=== PATIENT | male | born 1955 | race Caucasian/White ===

== ENCOUNTER 2017-09-06 08:36 | Inpatient (IN) | payer OTHER ==
[~2017-09-06] VITALS: Ht 177.8 cm; Wt 130.1 kg
[2017-09-06] MEDS ORDERED: ipratropium/albuterol 3ml nebule NEB ONE (09:15)
[2017-09-06] MEDS ORDERED: methylPREDNISolone sod succ 125mg/2ml vial IV ONE (09:15)
[2017-09-06 09:40] LABS: BASOPHILS % (AUTO) 0.5 % (0-1); EOSINOPHILS # (AUTO) 0.2 X10'3 (0-0.9); EOSINOPHILS % (AUTO) 2.5 % (0-6); HEMATOCRIT 45.4 % (42.0-52.0); HEMOGLOBIN 15.4 g/dl (14.0-17.9); LYMPHOCYTES # (AUTO) 1.9 X10'3 (1.1-4.8); MEAN CORPUSCULAR HEMOGLOBIN 28.5 PG (27.0-31.0); MEAN CORPUSCULAR HGB CONC 33.9 % (33.0-36.5); MEAN CORPUSCULAR VOLUME 84.2 FL (78-98); MEAN PLATELET VOLUME 8.3 FL (7.4-10.4); MONOCYTES # (AUTO) 0.6 X10'3 (0-0.9); MONOCYTES % (AUTO) 6.9 % (2-12); NEUTROPHILS # (AUTO) 6.3 X10'3 (1.8-7.7); NEUTROPHILS % (AUTO) 69.1 % (42-75); PLATELET COUNT 234 X10'3 (140-440); RED CELL DISTRIBUTION WIDTH 14.8 % (11.5-14.5); WHITE BLOOD COUNT 9.1 X10'3 (4.5-11.0)
[2017-09-06] MEDS ORDERED: iohexol 350MG/ML 100ml bottle IV ONE (09:58)
[2017-09-06 10:02] LABS: ALANINE AMINOTRANSFERASE 63 U/L (12-78); ALBUMIN 3.4 G/DL (3.4-5.0); ALBUMIN/GLOBULIN RATIO 0.9 (1.1-1.5); ALKALINE PHOSPHATASE 50 IU/L (46-116); ANION GAP 8 (8-16); ASPARTATE AMINO TRANSFERASE 30 U/L (10-37); BILIRUBIN,TOTAL 0.8 MG/DL (0.1-1.0); BLOOD UREA NITROGEN 19 MG/DL (7-18); BUN/CREATININE RATIO 18.6 (5.4-32.0); CHLORIDE 102 MMOL/L (99-107); CREATININE 1.02 MG/DL (0.60-1.10); GLUCOSE 166 MG/DL (70-104); POTASSIUM 4.3 MMOL/L (3.5-5.1); SODIUM 137 MMOL/L (135-145); TOTAL CARBON DIOXIDE 26.6 MMOL/L (24-32); TOTAL PROTEIN 7.4 G/DL (6.4-8.2); eGFR 74 ML/MIN
[2017-09-06] MEDS ORDERED: HYDROcodone/acetaminophen 5mg/325mg tablet PO ONE (10:45)
[2017-09-06] MEDS ORDERED: furosemide 10 MG/1 ML 10ml inj IV ONE (12:25)
[2017-09-06] MEDS ORDERED: albuterol 2.5 MG/3 ML nebule NEB PRN (13:00)
[2017-09-06] MEDS ORDERED: magnesium hydroxide 30ml (MOM) UD suspension PO PRN (13:00)
[2017-09-06] MEDS ORDERED: mag hydrox/Alum hydrox/simeth 30ml oral suspension PO PRN (13:00)
[2017-09-06] MEDS ORDERED: ondansetron/PF 4mg/2ml inj IV PRN (13:00)
[2017-09-06] MEDS ORDERED: acetaminophen 325mg tablet PO PRN ×2 (13:00)
[2017-09-06] MEDS ORDERED: nicotine 21mg patch - 24 hr TD ONE (14:50)
[2017-09-06] MEDS: methylPREDNISolone sod succ 125mg/2ml vial IV SCH ×2 (16:00→23:45)
[2017-09-06] MEDS: doxycycline hyclate 100mg tablet.DR PO SCH (17:30)
[2017-09-06] MEDS ORDERED: metoprolol tartrate 50mg tablet PO ONE (19:40)
[2017-09-06 20:20] VITALS: BP 146/68
[2017-09-07] VITALS (10 sets, daily range): BP systolic 121–145; BP diastolic 69–77
[2017-09-07] MEDS: HYDROcodone/acetaminophen 5mg/325mg tablet PO PRN ×2 (05:22→14:45)
[2017-09-07 06:01] LABS: BASOPHILS % (AUTO) 0.1 % (0-1); EOSINOPHILS % (AUTO) 0 % (0-6); HEMATOCRIT 44.6 % (42.0-52.0); HEMOGLOBIN 15.4 g/dl (14.0-17.9); LYMPHOCYTES % (AUTO) 6.9 % (21-51); MEAN CORPUSCULAR HEMOGLOBIN 28.8 PG (27.0-31.0); MEAN CORPUSCULAR HGB CONC 34.5 % (33.0-36.5); MEAN CORPUSCULAR VOLUME 83.5 FL (78-98); MEAN PLATELET VOLUME 8.6 FL (7.4-10.4); MONOCYTES # (AUTO) 0.2 X10'3 (0-0.9); MONOCYTES % (AUTO) 1.7 % (2-12); NEUTROPHILS # (AUTO) 13.3 X10'3 (1.8-7.7); NEUTROPHILS % (AUTO) 91.3 % (42-75); PLATELET COUNT 242 X10'3 (140-440); RED BLOOD COUNT 5.34 X10'6 (4.70-6.10); RED CELL DISTRIBUTION WIDTH 14.9 % (11.5-14.5); WHITE BLOOD COUNT 14.6 X10'3 (4.5-11.0)
[2017-09-07 06:22] LABS: ALANINE AMINOTRANSFERASE 63 U/L (12-78); ALBUMIN 3.2 G/DL (3.4-5.0); ALBUMIN/GLOBULIN RATIO 0.8 (1.1-1.5); ALKALINE PHOSPHATASE 49 IU/L (46-116); ANION GAP 9 (8-16); ASPARTATE AMINO TRANSFERASE 23 U/L (10-37); BILIRUBIN,TOTAL 0.5 MG/DL (0.1-1.0); BLOOD UREA NITROGEN 26 MG/DL (7-18); CALCIUM 8.9 MG/DL (8.5-10.1); CHLORIDE 100 MMOL/L (99-107); CHOL/HDL RATIO 5.5 (0.00-4.99); CHOLESTEROL 187 MG/DL (0-200); CREATININE 1.24 MG/DL (0.60-1.10); GLUCOSE 249 MG/DL (70-104); HDL CHOLESTEROL 34 MG/DL (35-60); LDL CHOLESTEROL 132 MG/DL (50-100); POTASSIUM 4.4 MMOL/L (3.5-5.1); SODIUM 135 MMOL/L (135-145); TOTAL CARBON DIOXIDE 25.6 MMOL/L (24-32); TOTAL PROTEIN 7.3 G/DL (6.4-8.2); TRIGLYCERIDES 72 MG/DL (20-135); eGFR 59 ML/MIN
[2017-09-07] MEDS: doxycycline hyclate 100mg tablet.DR PO SCH ×2 (08:07→17:37)
[2017-09-07] MEDS: enoxaparin 40mg/0.4ml syringe SQ SCH (08:09)
[2017-09-07] MEDS: methylPREDNISolone sod succ 125mg/2ml vial IV SCH ×3 (08:09→23:04)
[2017-09-07 10:28] LABS: BFSOURCE LEFT PLEURAL FLD; PLEURAL FLUID PH 7.458 (7.63-7.65)
[2017-09-07 11:26] LABS: GLUCOSE,BODY FLUID 287 MG/DL; LDH,BODY FLUID 206 U/L; TOTAL PROTEIN,BODY FLUID 5.3 G/DL
[2017-09-07 12:13] LABS: LYMPHOCYTES,BODY FLUID 70 %; MONOCYTES,BODY FLUID 13 %; NEUTROPHILS,BODY FLUID 17 %
[2017-09-07 12:14] LABS: BF MESOTHELIAL CELLS FEW; BF RBC COUNT 4425 /CU MM; BF WBC COUNT 2025 /CU MM (0-1000); BFAPPEAR CLOUDY; BFCOLOR YELLOW; BFVOLUME 56 ML
[2017-09-07] MEDS ORDERED: ASPI-1264 PO (15:17)
[2017-09-07] MEDS: nicotine 21mg patch - 24 hr TD SCH ×2 (23:00→23:04)
[2017-09-08] VITALS: BP 137/68
[2017-09-08 05:06] LABS: BASOPHILS % (AUTO) 0 % (0-1); EOSINOPHILS # (AUTO) 0.1 X10'3 (0-0.9); EOSINOPHILS % (AUTO) 0.8 % (0-6); HEMATOCRIT 45.9 % (42.0-52.0); HEMOGLOBIN 15.5 g/dl (14.0-17.9); LYMPHOCYTES # (AUTO) 0.9 X10'3 (1.1-4.8); LYMPHOCYTES % (AUTO) 5.2 % (21-51); MEAN CORPUSCULAR HEMOGLOBIN 28.5 PG (27.0-31.0); MEAN CORPUSCULAR HGB CONC 33.8 % (33.0-36.5); MEAN CORPUSCULAR VOLUME 84.3 FL (78-98); MEAN PLATELET VOLUME 8.6 FL (7.4-10.4); MONOCYTES # (AUTO) 0.3 X10'3 (0-0.9); MONOCYTES % (AUTO) 1.7 % (2-12); NEUTROPHILS # (AUTO) 15.7 X10'3 (1.8-7.7); NEUTROPHILS % (AUTO) 92.3 % (42-75); PLATELET COUNT 244 X10'3 (140-440); RED BLOOD COUNT 5.45 X10'6 (4.70-6.10); RED CELL DISTRIBUTION WIDTH 14.9 % (11.5-14.5)
[2017-09-08 05:20] LABS: ALANINE AMINOTRANSFERASE 56 U/L (12-78); ALBUMIN 3.2 G/DL (3.4-5.0); ALBUMIN/GLOBULIN RATIO 0.8 (1.1-1.5); ALKALINE PHOSPHATASE 51 IU/L (46-116); ANION GAP 5 (8-16); ASPARTATE AMINO TRANSFERASE 22 U/L (10-37); BILIRUBIN,TOTAL 0.5 MG/DL (0.1-1.0); BLOOD UREA NITROGEN 27 MG/DL (7-18); BUN/CREATININE RATIO 23.3 (5.4-32.0); CALCIUM 9.2 MG/DL (8.5-10.1); CHLORIDE 102 MMOL/L (99-107); CREATININE 1.16 MG/DL (0.60-1.10); GLUCOSE 269 MG/DL (70-104); POTASSIUM 4.9 MMOL/L (3.5-5.1); SODIUM 137 MMOL/L (135-145); TOTAL CARBON DIOXIDE 29.7 MMOL/L (24-32); TOTAL PROTEIN 7.4 G/DL (6.4-8.2); eGFR 64 ML/MIN
[2017-09-08 07:09] VITALS: BP 135/76
[2017-09-08] MEDS: doxycycline hyclate 100mg tablet.DR PO SCH ×2 (07:48→16:33)
[2017-09-08] MEDS: enoxaparin 40mg/0.4ml syringe SQ SCH (07:49)
[2017-09-08] MEDS: methylPREDNISolone sod succ 125mg/2ml vial IV SCH ×2 (07:49→16:33)
[2017-09-08 11:09] VITALS: BP 156/76
[2017-09-08] MEDS: HYDROcodone/acetaminophen 5mg/325mg tablet PO PRN (16:41)
[2017-09-08 19:00] VITALS: BP 158/81
[2017-09-08 23:30] VITALS: BP 147/68
[2017-09-09] MEDS: methylPREDNISolone sod succ 125mg/2ml vial IV SCH ×4 (00:01→23:25)
[2017-09-09] MEDS: nicotine 21mg patch - 24 hr TD SCH (00:03)
[2017-09-09 06:27] LABS: BASOPHILS % (AUTO) 0 % (0-1); EOSINOPHILS % (AUTO) 0 % (0-6); HEMATOCRIT 44.1 % (42.0-52.0); LYMPHOCYTES # (AUTO) 0.9 X10'3 (1.1-4.8); LYMPHOCYTES % (AUTO) 6.3 % (21-51); MEAN CORPUSCULAR HEMOGLOBIN 28.6 PG (27.0-31.0); MEAN CORPUSCULAR HGB CONC 33.9 % (33.0-36.5); MEAN CORPUSCULAR VOLUME 84.3 FL (78-98); MEAN PLATELET VOLUME 8.9 FL (7.4-10.4); MONOCYTES # (AUTO) 0.3 X10'3 (0-0.9); MONOCYTES % (AUTO) 2.4 % (2-12); NEUTROPHILS # (AUTO) 12.4 X10'3 (1.8-7.7); NEUTROPHILS % (AUTO) 91.3 % (42-75); PLATELET COUNT 218 X10'3 (140-440); RED BLOOD COUNT 5.23 X10'6 (4.70-6.10); RED CELL DISTRIBUTION WIDTH 14.8 % (11.5-14.5); WHITE BLOOD COUNT 13.6 X10'3 (4.5-11.0)
[2017-09-09 06:42] LABS: ALANINE AMINOTRANSFERASE 52 U/L (12-78); ALBUMIN/GLOBULIN RATIO 0.8 (1.1-1.5); ALKALINE PHOSPHATASE 53 IU/L (46-116); ANION GAP 7 (8-16); ASPARTATE AMINO TRANSFERASE 19 U/L (10-37); BILIRUBIN,TOTAL 0.4 MG/DL (0.1-1.0); BLOOD UREA NITROGEN 27 MG/DL (7-18); BUN/CREATININE RATIO 22.7 (5.4-32.0); CALCIUM 8.9 MG/DL (8.5-10.1); CHLORIDE 104 MMOL/L (99-107); CREATININE 1.19 MG/DL (0.60-1.10); GLUCOSE 348 MG/DL (70-104); SODIUM 138 MMOL/L (135-145); TOTAL CARBON DIOXIDE 27.1 MMOL/L (24-32); TOTAL PROTEIN 6.9 G/DL (6.4-8.2); eGFR 62 ML/MIN
[2017-09-09 07:00] VITALS: BP 134/86
[2017-09-09] MEDS: doxycycline hyclate 100mg tablet.DR PO SCH ×2 (07:14→17:27)
[2017-09-09] MEDS: enoxaparin 40mg/0.4ml syringe SQ SCH (07:15)
[2017-09-09] MEDS: HYDROcodone/acetaminophen 5mg/325mg tablet PO PRN ×2 (07:16→14:43)
[2017-09-09 12:07] VITALS: BP 136/65
[2017-09-09 19:00] VITALS: BP 154/81
[2017-09-09] MEDS: zolpidem 5mg tablet PO PRN (21:39)
[2017-09-09 23:00] VITALS: BP 134/68
[2017-09-10] MEDS: nicotine 21mg patch - 24 hr TD SCH (01:18)
[2017-09-10] MEDS: HYDROcodone/acetaminophen 5mg/325mg tablet PO PRN ×4 (02:51→19:34)
[2017-09-10 05:22] LABS: BASOPHILS % (AUTO) 0 % (0-1); EOSINOPHILS % (AUTO) 0 % (0-6); HEMATOCRIT 47.2 % (42.0-52.0); HEMOGLOBIN 15.8 g/dl (14.0-17.9); LYMPHOCYTES % (AUTO) 7.2 % (21-51); MEAN CORPUSCULAR HEMOGLOBIN 28.2 PG (27.0-31.0); MEAN CORPUSCULAR HGB CONC 33.5 % (33.0-36.5); MEAN CORPUSCULAR VOLUME 84.2 FL (78-98); MEAN PLATELET VOLUME 8.8 FL (7.4-10.4); MONOCYTES # (AUTO) 0.4 X10'3 (0-0.9); MONOCYTES % (AUTO) 3.1 % (2-12); NEUTROPHILS # (AUTO) 12.7 X10'3 (1.8-7.7); NEUTROPHILS % (AUTO) 89.7 % (42-75); PLATELET COUNT 244 X10'3 (140-440); WHITE BLOOD COUNT 14.2 X10'3 (4.5-11.0)
[2017-09-10 05:50] LABS: ALANINE AMINOTRANSFERASE 63 U/L (12-78); ALBUMIN 3.3 G/DL (3.4-5.0); ALBUMIN/GLOBULIN RATIO 0.8 (1.1-1.5); ALKALINE PHOSPHATASE 67 IU/L (46-116); ANION GAP 6 (8-16); ASPARTATE AMINO TRANSFERASE 20 U/L (10-37); BILIRUBIN,TOTAL 0.5 MG/DL (0.1-1.0); BLOOD UREA NITROGEN 27 MG/DL (7-18); BUN/CREATININE RATIO 20.3 (5.4-32.0); CALCIUM 9.4 MG/DL (8.5-10.1); CHLORIDE 98 MMOL/L (99-107); CREATININE 1.33 MG/DL (0.60-1.10); SODIUM 134 MMOL/L (135-145); TOTAL CARBON DIOXIDE 30.4 MMOL/L (24-32); TOTAL PROTEIN 7.7 G/DL (6.4-8.2); eGFR 55 ML/MIN
[2017-09-10 05:57] LABS: GLUCOSE 481 MG/DL (70-104)
[2017-09-10 05:58] LABS: POTASSIUM 6.1 MMOL/L (3.5-5.1)
[2017-09-10 07:03] LABS: HEMOGLOBIN A1C 8.3 % (4.5-6.2)
[2017-09-10 07:54] VITALS: BP 154/80
[2017-09-10 07:54] LABS: ALANINE AMINOTRANSFERASE 62 U/L (12-78); ALBUMIN 3.3 G/DL (3.4-5.0); ALBUMIN/GLOBULIN RATIO 0.8 (1.1-1.5); ALKALINE PHOSPHATASE 62 IU/L (46-116); ANION GAP 6 (8-16); ASPARTATE AMINO TRANSFERASE 19 U/L (10-37); BILIRUBIN,TOTAL 0.5 MG/DL (0.1-1.0); BLOOD UREA NITROGEN 28 MG/DL (7-18); BUN/CREATININE RATIO 22.8 (5.4-32.0); CALCIUM 9.2 MG/DL (8.5-10.1); CHLORIDE 100 MMOL/L (99-107); CREATININE 1.23 MG/DL (0.60-1.10); GLUCOSE 391 MG/DL (70-104); POTASSIUM 5.3 MMOL/L (3.5-5.1); SODIUM 136 MMOL/L (135-145); TOTAL CARBON DIOXIDE 30.4 MMOL/L (24-32); TOTAL PROTEIN 7.5 G/DL (6.4-8.2); eGFR 60 ML/MIN
[2017-09-10] MEDS: doxycycline hyclate 100mg tablet.DR PO SCH ×2 (08:14→16:29)
[2017-09-10] MEDS: methylPREDNISolone sod succ 125mg/2ml vial IV SCH ×2 (08:15→16:30)
[2017-09-10] MEDS: enoxaparin 40mg/0.4ml syringe SQ SCH (08:16)
[2017-09-10] MEDS ORDERED: glucagon, human recombinant 1mg kit SUBCUT PRN (09:00)
[2017-09-10] MEDS ORDERED: dextrose ORAL solution 15 GM/59 ML bottle PO PRN ×2 (09:00)
[2017-09-10] MEDS ORDERED: dextrose 50%-water 50ml dispensing syringe IV PRN ×2 (09:00)
[2017-09-10 11:48] VITALS: BP 159/81
[2017-09-10] MEDS: insulin Lispro (HumaLOG) vial - multi-dose SQ SCH ×3 (13:13→22:29)
[2017-09-10 19:00] VITALS: BP 139/78
[2017-09-10] MEDS: insulin glargine (Lantus) pen - multi-dose SQ SCH (22:28)
[2017-09-10] MEDS: zolpidem 5mg tablet PO PRN (22:29)
[2017-09-10 23:00] VITALS: BP 135/79
[2017-09-11] MEDS: methylPREDNISolone sod succ 125mg/2ml vial IV SCH ×4 (00:11→23:40)
[2017-09-11] MEDS: nicotine 21mg patch - 24 hr TD SCH (00:13)
[2017-09-11 05:31] LABS: BASOPHILS # (AUTO) 0.1 X10'3 (0-0.2); BASOPHILS % (AUTO) 0.4 % (0-1); EOSINOPHILS % (AUTO) 0 % (0-6); HEMATOCRIT 48.8 % (42.0-52.0); HEMOGLOBIN 16.3 g/dl (14.0-17.9); LYMPHOCYTES # (AUTO) 1.3 X10'3 (1.1-4.8); MEAN CORPUSCULAR HEMOGLOBIN 28.4 PG (27.0-31.0); MEAN CORPUSCULAR HGB CONC 33.4 % (33.0-36.5); MEAN PLATELET VOLUME 8.6 FL (7.4-10.4); MONOCYTES # (AUTO) 0.4 X10'3 (0-0.9); MONOCYTES % (AUTO) 3.2 % (2-12); NEUTROPHILS # (AUTO) 12.2 X10'3 (1.8-7.7); NEUTROPHILS % (AUTO) 87.4 % (42-75); PLATELET COUNT 254 X10'3 (140-440); RED BLOOD COUNT 5.73 X10'6 (4.70-6.10); RED CELL DISTRIBUTION WIDTH 14.8 % (11.5-14.5)
[2017-09-11 06:00] LABS: ALANINE AMINOTRANSFERASE 63 U/L (12-78); ALBUMIN 3.1 G/DL (3.4-5.0); ALBUMIN/GLOBULIN RATIO 0.7 (1.1-1.5); ALKALINE PHOSPHATASE 60 IU/L (46-116); ANION GAP 6 (8-16); BILIRUBIN,TOTAL 0.7 MG/DL (0.1-1.0); BLOOD UREA NITROGEN 31 MG/DL (7-18); BUN/CREATININE RATIO 25.6 (5.4-32.0); C-REACTIVE PROTEIN 0.11 MG/DL (0.0-0.5); CALCIUM 9.3 MG/DL (8.5-10.1); CHLORIDE 99 MMOL/L (99-107); CREATININE 1.21 MG/DL (0.60-1.10); GLUCOSE 306 MG/DL (70-104); SODIUM 136 MMOL/L (135-145); TOTAL CARBON DIOXIDE 31.4 MMOL/L (24-32); TOTAL PROTEIN 7.5 G/DL (6.4-8.2); eGFR 61 ML/MIN
[2017-09-11 06:57] VITALS: BP 143/68
[2017-09-11 07:13] LABS: ASPARTATE AMINO TRANSFERASE 32 U/L (10-37); PHOSPHORUS 4.2 MG/DL (2.3-4.5); POTASSIUM 5.8 MMOL/L (3.5-5.1)
[2017-09-11] MEDS: enoxaparin 40mg/0.4ml syringe SQ SCH (07:15)
[2017-09-11] MEDS: HYDROcodone/acetaminophen 5mg/325mg tablet PO PRN ×3 (07:15→20:23)
[2017-09-11] MEDS: doxycycline hyclate 100mg tablet.DR PO SCH ×2 (07:15→16:31)
[2017-09-11 08:08] LABS: HEP B CORE AB, IGM Negative (Negative); HEPATITIS C ANTIBODY 9.3 s/co ratio (0.0-0.9)
[2017-09-11] MEDS: insulin Lispro (HumaLOG) vial - multi-dose SQ SCH ×4 (08:53→20:13)
[2017-09-11 11:41] VITALS: BP 138/62
[2017-09-11 20:00] VITALS: BP 144/78
[2017-09-11] MEDS: insulin glargine (Lantus) pen - multi-dose SQ SCH (20:15)
[2017-09-11] MEDS: zolpidem 5mg tablet PO PRN (21:12)
[2017-09-12 00:48] VITALS: BP 138/83
[2017-09-12 07:10] VITALS: BP 130/86
[2017-09-12] MEDS: doxycycline hyclate 100mg tablet.DR PO SCH ×2 (08:01→17:18)
[2017-09-12] MEDS: HYDROcodone/acetaminophen 5mg/325mg tablet PO PRN ×3 (08:02→21:05)
[2017-09-12] MEDS: methylPREDNISolone sod succ 125mg/2ml vial IV SCH ×2 (08:02→16:00)
[2017-09-12] MEDS: nicotine 21mg patch - 24 hr TD SCH (08:02)
[2017-09-12] MEDS: enoxaparin 40mg/0.4ml syringe SQ SCH (08:24)
[2017-09-12] MEDS: insulin Lispro (HumaLOG) vial - multi-dose SQ SCH ×5 (10:27→21:03)
[2017-09-12 11:00] VITALS: BP 135/81
[2017-09-12] MEDS ORDERED: gadopentetate dimeglumine 7.5 MMOL/15 ML syringe ONE (14:46)
[2017-09-12 20:00] VITALS: BP 133/78
[2017-09-12] MEDS ORDERED: furosemide 20MG tablet PO ONE (21:00)
[2017-09-12] MEDS: insulin glargine (Lantus) pen - multi-dose SQ SCH (21:05)
[2017-09-12 23:30] VITALS: BP 106/76
[2017-09-13] MEDS ORDERED: morphine 4 MG/ML inj SYRINge IV PRN (00:05)
[2017-09-13 05:55] LABS: BASOPHILS % (AUTO) 0.2 % (0-1); EOSINOPHILS # (AUTO) 0.2 X10'3 (0-0.9); EOSINOPHILS % (AUTO) 1.5 % (0-6); HEMATOCRIT 49.2 % (42.0-52.0); HEMOGLOBIN 16.5 g/dl (14.0-17.9); LYMPHOCYTES # (AUTO) 2.5 X10'3 (1.1-4.8); LYMPHOCYTES % (AUTO) 17.7 % (21-51); MEAN CORPUSCULAR HEMOGLOBIN 28.1 PG (27.0-31.0); MEAN CORPUSCULAR HGB CONC 33.6 % (33.0-36.5); MEAN CORPUSCULAR VOLUME 83.8 FL (78-98); MEAN PLATELET VOLUME 8.5 FL (7.4-10.4); MONOCYTES # (AUTO) 1.5 X10'3 (0-0.9); MONOCYTES % (AUTO) 10.7 % (2-12); NEUTROPHILS # (AUTO) 10.1 X10'3 (1.8-7.7); NEUTROPHILS % (AUTO) 69.9 % (42-75); PLATELET COUNT 227 X10'3 (140-440); RED BLOOD COUNT 5.88 X10'6 (4.70-6.10); WHITE BLOOD COUNT 14.4 X10'3 (4.5-11.0)
[2017-09-13 06:06] LABS: PROTHROMBIN TIME 10.7 SECONDS (9.0-12.0)
[2017-09-13 06:10] LABS: ALBUMIN 2.9 G/DL (3.4-5.0); ANION GAP 4 (8-16); BLOOD UREA NITROGEN 39 MG/DL (7-18); BUN/CREATININE RATIO 29.8 (5.4-32.0); CALCIUM 8.7 MG/DL (8.5-10.1); CHLORIDE 100 MMOL/L (99-107); CREATININE 1.31 MG/DL (0.60-1.10); GLUCOSE 140 MG/DL (70-104); POTASSIUM 5.3 MMOL/L (3.5-5.1); SODIUM 139 MMOL/L (135-145); TOTAL CARBON DIOXIDE 34.9 MMOL/L (24-32); eGFR 56 ML/MIN
[2017-09-13] MEDS: nicotine 21mg patch - 24 hr TD SCH (07:50)
[2017-09-13] MEDS: enoxaparin 40mg/0.4ml syringe SQ SCH (07:51)
[2017-09-13 08:00] VITALS: BP 135/84
[2017-09-13] MEDS: insulin Lispro (HumaLOG) vial - multi-dose SQ SCH ×4 (08:32→21:18)
[2017-09-13 11:00] VITALS: BP 136/88
[2017-09-13] MEDS ORDERED: ipratropium/albuterol 3ml nebule NEB PRN (11:40)
[2017-09-13] MEDS ORDERED: sodium polystyrene sulfonate 15gm/60ml oral suspension PO ONE (11:40)
[2017-09-13] MEDS: HYDROcodone/acetaminophen 5mg/325mg tablet PO PRN ×2 (14:05→21:22)
[2017-09-13 20:00] VITALS: BP 157/76
[2017-09-13] MEDS ORDERED: ALBU2.5V7 NEB (20:49)
[2017-09-13] MEDS ORDERED: HYDR-569 PO (20:49)
[2017-09-13] MEDS ORDERED: INSU100V11 SQ (20:49)
[2017-09-13] MEDS ORDERED: IPRA3AMP9 NEB (20:49)
[2017-09-13] MEDS ORDERED: NICO-687 TD (20:49)
[2017-09-13] MEDS: insulin glargine (Lantus) pen - multi-dose SQ SCH (21:19)
[2017-09-13] MEDS: zolpidem 5mg tablet PO PRN (21:22)
[2017-09-14 06:29] LABS: ALBUMIN 2.8 G/DL (3.4-5.0); ANION GAP 10 (8-16); BLOOD UREA NITROGEN 33 MG/DL (7-18); BUN/CREATININE RATIO 28.7 (5.4-32.0); CALCIUM 8.2 MG/DL (8.5-10.1); CHLORIDE 100 MMOL/L (99-107); CREATININE 1.15 MG/DL (0.60-1.10); GLUCOSE 176 MG/DL (70-104); POTASSIUM 4.1 MMOL/L (3.5-5.1); SODIUM 136 MMOL/L (135-145); TOTAL CARBON DIOXIDE 25.9 MMOL/L (24-32); eGFR 65 ML/MIN
[2017-09-14] MEDS: HYDROcodone/acetaminophen 5mg/325mg tablet PO PRN (07:06)
[2017-09-14] MEDS: enoxaparin 40mg/0.4ml syringe SQ SCH (07:07)
[2017-09-14] MEDS: nicotine 21mg patch - 24 hr TD SCH (07:10)
[2017-09-14 07:49] VITALS: BP 120/76
[2017-09-14] MEDS ORDERED: lisinopril 5mg tablet PO SCH (08:00)
[2017-09-14] MEDS: insulin Lispro (HumaLOG) vial - multi-dose SQ SCH ×2 (08:28→13:38)
[2017-09-14 11:00] VITALS: BP 122/76
[2017-09-14] MEDS ORDERED: LISI-604 PO (11:17)
[2017-09-14] MEDS ORDERED: LANTUS SQ (11:17)
== END 2017-09-14 14:10 | disposition home or self-care (01) | DRG 436 ==
LOC: ER 08:36 → ED HOLD 13:00 → MED 3N 20:20
PROVIDERS: ADMIT Family Medicine; ATTEND Family Medicine
PROC: B32T1ZZ Computerized Tomography (CT Scan) of Left Pulmonary Artery using Low Osmolar Contrast (ICD-10-PCS; 2017-09-06)
PROC: B32S1ZZ Computerized Tomography (CT Scan) of Right Pulmonary Artery using Low Osmolar Contrast (ICD-10-PCS; 2017-09-06)
PROC: 0W9B3ZZ Drainage of Left Pleural Cavity, Percutaneous Approach (ICD-10-PCS; principal; 2017-09-07)
DX: C78.7 Secondary malignant neoplasm of liver and intrahepatic bile duct (principal); J91.0 Malignant pleural effusion; E11.22 Type 2 diabetes mellitus with diabetic chronic kidney disease; E11.65 Type 2 diabetes mellitus with hyperglycemia; Z68.41 Body mass index [BMI] 40.0-44.9, adult; B18.1 Chronic viral hepatitis B without delta-agent; N18.3 Chronic kidney disease, stage 3 (moderate); C80.1 Malignant (primary) neoplasm, unspecified; E66.3 Overweight; J44.9 Chronic obstructive pulmonary disease, unspecified; E87.5 Hyperkalemia; F17.210 Nicotine dependence, cigarettes, uncomplicated; Z83.3 Family history of diabetes mellitus; Z86.718 Personal history of other venous thrombosis and embolism
CPT/HCPCS: 32555; 36415; 49083; 71045; 71046; 71275; 74183; 76700; 80048; 80053; 80061; 82103; 82945; 82948; 83036; 83605; 83615; 83880; 83986; 84100; 84157; 84484; 85025; 85610; 86140; 86705; 86706; 86803; 87040; 87070; 87075; 87102; 89051; 93005; 93306; 94640; 94760; 96374; 96375; 99285; A9579; J1650; J1815; J1940; J2270; J2930; Q9967

== ENCOUNTER 2018-01-23 08:35 | Day surgery (SDC) | payer MEDICAID ==
[~2018-01-23] VITALS: Ht 175.3 cm; Wt 116.8 kg
[~2018-01-23 08:35] MED LIST: ALBU2.5V7 NEB; ASPI-1264 PO; HYDR-569 PO; INSU100V11 SQ; IPRA3AMP9 NEB; LANTUS SQ; LIDOcaine 1%/PF 5ML 10 MG/ML VIAL SQ ONE; LISI-604 PO; NICO-687 TD
[2018-01-23 09:00] VITALS: BP 128/77
[2018-01-23] MEDS ORDERED: FRAGMIN (09:16)
[2018-01-23] MEDS ORDERED: ESCI10TA54 PO (09:16)
[2018-01-23] MEDS ORDERED: FAMO20TA8 PO (09:16)
[2018-01-23] MEDS ORDERED: PRIM50TA27 PO (09:16)
[2018-01-23] MEDS ORDERED: DEXA4TAB PO (09:16)
[2018-01-23] MEDS ORDERED: ALPR0.5T8 PO (09:16)
== END 2018-01-23 10:10 | disposition home or self-care (01) ==
LOC: SSTAY O 08:35
PROVIDERS: ATTEND Radiology Diagnostic Radiology
DX: J90 Pleural effusion, not elsewhere classified (principal); J44.9 Chronic obstructive pulmonary disease, unspecified; E11.22 Type 2 diabetes mellitus with diabetic chronic kidney disease; I12.9 Hypertensive chronic kidney disease with stage 1 through stage 4 chronic kidney disease, or unspecified chronic kidney disease; E66.3 Overweight; N18.3 Chronic kidney disease, stage 3 (moderate); B18.1 Chronic viral hepatitis B without delta-agent; Z68.38 Body mass index [BMI] 38.0-38.9, adult; Z53.8 Procedure and treatment not carried out for other reasons; Z86.718 Personal history of other venous thrombosis and embolism; Z87.891 Personal history of nicotine dependence; Z79.891 Long term (current) use of opiate analgesic; Z92.21 Personal history of antineoplastic chemotherapy; Z85.118 Personal history of other malignant neoplasm of bronchus and lung; Z79.899 Other long term (current) drug therapy; Z98.890 Other specified postprocedural states; Z83.3 Family history of diabetes mellitus
CPT/HCPCS: 32555; 76604; J2001

== ENCOUNTER 2018-02-09 10:59 | Day surgery (SDC) | payer MEDICAID ==
[~2018-02-09] VITALS: Ht 175.3 cm; Wt 116.2 kg
[~2018-02-09 10:59] MED LIST changes: +ALPR0.5T8 PO; -ASPI-1264 PO; +DEXA4TAB PO; +ESCI10TA54 PO; +FAMO20TA8 PO; +FRAGMIN; -INSU100V11 SQ; -LANTUS SQ; -LIDOcaine 1%/PF 5ML 10 MG/ML VIAL SQ ONE; -LISI-604 PO; -NICO-687 TD; +PRIM50TA27 PO
[2018-02-09] MEDS ORDERED: normal saline 1000ml 1,000 ML IV PRN (11:15)
[2018-02-09 11:25] VITALS: BP 129/77
[2018-02-09] MEDS ORDERED: COLON HEALTH (11:45)
[2018-02-09] MEDS ORDERED: ONDA4TAB11 PO (11:45)
[2018-02-09] MEDS ORDERED: HYDR-3972 PO (11:45)
[2018-02-09] MEDS ORDERED: [UNRECOGNIZED DRUG - CODE] (11:45)
[2018-02-09] MEDS ORDERED: FOLIC ACID PO (11:45)
[2018-02-09 12:20] LABS: BASOPHILS % (AUTO) 0.2 % (0-1); EOSINOPHILS # (AUTO) 0.1 X10'3 (0-0.9); EOSINOPHILS % (AUTO) 2.3 % (0-6); HEMATOCRIT 38.8 % (42.0-52.0); HEMOGLOBIN 13.2 g/dl (14.0-17.9); LYMPHOCYTES # (AUTO) 1.2 X10'3 (1.1-4.8); LYMPHOCYTES % (AUTO) 26.7 % (21-51); MEAN CORPUSCULAR HEMOGLOBIN 29.3 PG (27.0-31.0); MEAN CORPUSCULAR VOLUME 86.1 FL (78-98); MEAN PLATELET VOLUME 8.1 FL (7.4-10.4); MONOCYTES # (AUTO) 0.5 X10'3 (0-0.9); MONOCYTES % (AUTO) 11.4 % (2-12); NEUTROPHILS # (AUTO) 2.6 X10'3 (1.8-7.7); NEUTROPHILS % (AUTO) 59.4 % (42-75); PLATELET COUNT 70 X10'3 (140-440); RED BLOOD COUNT 4.51 X10'6 (4.70-6.10); RED CELL DISTRIBUTION WIDTH 17.4 % (11.5-14.5); WHITE BLOOD COUNT 4.3 X10'3 (4.5-11.0)
[2018-02-09] MEDS ORDERED: LIDOcaine 1%/PF 5ML 10 MG/ML VIAL SQ ONE (12:35)
[2018-02-09] MEDS ORDERED: midazolam 2 mg/2 ml injection IV PRN (12:35)
[2018-02-09] MEDS ORDERED: heparin sodium, porcine/PF 100unit/ml 5ML syringe ICATH ONE (12:35)
[2018-02-09] MEDS ORDERED: fentaNYL/PF 50MCG/1 ML 2ML syringe IV PRN (12:35)
[2018-02-09] MEDS ORDERED: heparin sodium, porcine/PF 100unit/ml 5ML syringe ONE (12:46)
[2018-02-09] MEDS ORDERED: LIDOcaine 1%/PF 5ML 10 MG/ML VIAL ONE (12:46)
[2018-02-09] MEDS ORDERED: fentaNYL/PF 50MCG/1 ML 2ML syringe ONE (12:47)
[2018-02-09] MEDS ORDERED: midazolam 2 mg/2 ml injection ONE (12:47)
[2018-02-09 13:54] VITALS: BP 129/78
[2018-02-09 14:07] VITALS: BP 119/78
[2018-02-09 14:22] VITALS: BP 130/82
[2018-02-09 14:37] VITALS: BP 144/80
== END 2018-02-09 15:13 | disposition home or self-care (01) ==
LOC: SSTAY O 10:59
PROVIDERS: ATTEND Radiology Diagnostic Radiology
DX: C34.32 Malignant neoplasm of lower lobe, left bronchus or lung (principal); B18.1 Chronic viral hepatitis B without delta-agent; J44.9 Chronic obstructive pulmonary disease, unspecified; E11.22 Type 2 diabetes mellitus with diabetic chronic kidney disease; I12.9 Hypertensive chronic kidney disease with stage 1 through stage 4 chronic kidney disease, or unspecified chronic kidney disease; N18.3 Chronic kidney disease, stage 3 (moderate); E66.3 Overweight; Z92.21 Personal history of antineoplastic chemotherapy; Z87.891 Personal history of nicotine dependence; Z86.711 Personal history of pulmonary embolism; Z86.718 Personal history of other venous thrombosis and embolism; Z79.891 Long term (current) use of opiate analgesic; Z68.38 Body mass index [BMI] 38.0-38.9, adult; Z98.890 Other specified postprocedural states; Z79.899 Other long term (current) drug therapy; Z83.3 Family history of diabetes mellitus
CPT/HCPCS: 36415; 36561; 76937; 77001; 82948; 85025; 99152; 99153; A6219; C1788; C1894; J1642; J2001; J2250; J3010; J7030; A4620